=== PATIENT | male | born 1980 | race Caucasian/White ===

== ENCOUNTER 2023-01-02 13:00 | Outpatient (CLI) | payer BC, SELFPAY ==
[2023-01-02 14:52] LABS: Hemoglobin A1C* 4.92 % (0-5.6)
== END 2023-01-02 13:01 | disposition home or self-care (01) ==
PROVIDERS: PCP Family Medicine; Visit Provider Nurse Practitioner Family
DX: L89.893 Pressure ulcer of other site, stage 3 (principal); Q82.0 Hereditary lymphedema; E66.01 Morbid (severe) obesity due to excess calories; Z68.45 Body mass index [BMI] 70 or greater, adult; Z13.1 Encounter for screening for diabetes mellitus
CPT/HCPCS: 36415; 83036; 97597; 97598; 99203

== ENCOUNTER 2023-01-09 07:59 | Outpatient (CLI) | payer BC, SELFPAY | END 2023-01-09 08:00 | disposition home or self-care (01) | LOC: WOUND 07:59 | PROVIDERS: PCP Family Medicine; Visit Provider Nurse Practitioner Family | DX: L89.893 Pressure ulcer of other site, stage 3 (principal); Q82.0 Hereditary lymphedema; E66.01 Morbid (severe) obesity due to excess calories; Z68.45 Body mass index [BMI] 70 or greater, adult | CPT/HCPCS: 11042; 11045 ==

== ENCOUNTER 2023-01-16 11:24 | Outpatient (CLI) | payer BC, SELFPAY | END 2023-01-16 11:25 | disposition home or self-care (01) | LOC: WOUND 11:24 | PROVIDERS: PCP Family Medicine; Visit Provider Nurse Practitioner Family | DX: L89.893 Pressure ulcer of other site, stage 3 (principal); Q82.0 Hereditary lymphedema | CPT/HCPCS: 97597; 97598 ==

== ENCOUNTER 2023-01-23 13:57 | Outpatient (CLI) | payer BC, SELFPAY | END 2023-01-23 13:58 | disposition home or self-care (01) | LOC: WOUND 13:57 | PROVIDERS: PCP Family Medicine; Visit Provider Nurse Practitioner Family | DX: L89.893 Pressure ulcer of other site, stage 3 (principal); Q82.0 Hereditary lymphedema; E66.01 Morbid (severe) obesity due to excess calories; Z68.45 Body mass index [BMI] 70 or greater, adult | CPT/HCPCS: 97597; 97598 ==

== ENCOUNTER 2023-01-30 10:39 | Outpatient (CLI) | payer BC, SELFPAY | END 2023-01-30 10:40 | disposition home or self-care (01) | LOC: WOUND 10:39 | PROVIDERS: PCP Family Medicine; Visit Provider Nurse Practitioner Family | DX: L89.893 Pressure ulcer of other site, stage 3 (principal); Q82.0 Hereditary lymphedema | CPT/HCPCS: 97597; 97598 ==

== ENCOUNTER 2023-02-06 13:05 | Outpatient (CLI) | payer BC, SELFPAY | END 2023-02-06 13:06 | disposition home or self-care (01) | LOC: WOUND 13:05 | PROVIDERS: PCP Family Medicine; Visit Provider Nurse Practitioner Family | DX: L89.893 Pressure ulcer of other site, stage 3 (principal); Q82.0 Hereditary lymphedema; E66.01 Morbid (severe) obesity due to excess calories; Z68.45 Body mass index [BMI] 70 or greater, adult | CPT/HCPCS: 97597 ==

== ENCOUNTER 2023-02-13 13:11 | Outpatient (CLI) | payer BC, SELFPAY | END 2023-02-13 13:12 | disposition home or self-care (01) | LOC: WOUND 13:11 | PROVIDERS: PCP Family Medicine; Visit Provider Family Medicine | DX: L89.893 Pressure ulcer of other site, stage 3; Q82.0 Hereditary lymphedema; E66.01 Morbid (severe) obesity due to excess calories; Z68.45 Body mass index [BMI] 70 or greater, adult; R21 Rash and other nonspecific skin eruption | CPT/HCPCS: 97597 ==

== ENCOUNTER 2023-02-20 13:07 | Outpatient (CLI) | payer BC, SELFPAY | END 2023-02-20 13:08 | disposition home or self-care (01) | LOC: WOUND 13:07 | PROVIDERS: PCP Family Medicine; Visit Provider Nurse Practitioner Family | DX: L89.893 Pressure ulcer of other site, stage 3 (principal); Q82.0 Hereditary lymphedema; E66.01 Morbid (severe) obesity due to excess calories; Z68.45 Body mass index [BMI] 70 or greater, adult | CPT/HCPCS: 11042 ==

== ENCOUNTER 2023-03-13 13:14 | Outpatient (CLI) | payer BC, SELFPAY | END 2023-03-13 13:15 | disposition home or self-care (01) | LOC: WOUND 13:14 | PROVIDERS: PCP Family Medicine; Visit Provider Family Medicine | DX: L89.893 Pressure ulcer of other site, stage 3 (principal); L89.892 Pressure ulcer of other site, stage 2; Q82.0 Hereditary lymphedema | CPT/HCPCS: 11042 ==

== ENCOUNTER 2023-03-20 13:10 | Outpatient (CLI) | payer BC, SELFPAY | END 2023-03-20 13:11 | disposition home or self-care (01) | LOC: WOUND 13:10 | PROVIDERS: PCP Family Medicine; Visit Provider Nurse Practitioner Family | DX: L89.893 Pressure ulcer of other site, stage 3 (principal); Q82.0 Hereditary lymphedema; E66.01 Morbid (severe) obesity due to excess calories; Z68.45 Body mass index [BMI] 70 or greater, adult | CPT/HCPCS: 99213 ==

== ENCOUNTER 2023-03-27 13:26 | Outpatient (CLI) | payer BC, SELFPAY | END 2023-03-27 13:27 | disposition home or self-care (01) | PROVIDERS: PCP Family Medicine; Visit Provider Nurse Practitioner Family | DX: L89.893 Pressure ulcer of other site, stage 3 (principal); Q82.0 Hereditary lymphedema; E66.01 Morbid (severe) obesity due to excess calories; Z68.45 Body mass index [BMI] 70 or greater, adult | CPT/HCPCS: 97597 ==

== ENCOUNTER 2023-04-10 13:02 | Outpatient (CLI) | payer BC, SELFPAY | END 2023-04-10 13:03 | disposition home or self-care (01) | PROVIDERS: PCP Family Medicine; Visit Provider Nurse Practitioner Family | DX: L89.893 Pressure ulcer of other site, stage 3 (principal); Q82.0 Hereditary lymphedema; E66.01 Morbid (severe) obesity due to excess calories; Z68.45 Body mass index [BMI] 70 or greater, adult | CPT/HCPCS: 97597 ==

== ENCOUNTER 2023-04-17 13:19 | Outpatient (CLI) | payer BC, SELFPAY | END 2023-04-17 13:20 | disposition home or self-care (01) | LOC: WOUND 13:19 | PROVIDERS: PCP Family Medicine; Visit Provider Nurse Practitioner Family | DX: L89.893 Pressure ulcer of other site, stage 3 (principal); Q82.0 Hereditary lymphedema | CPT/HCPCS: 11042 ==

== ENCOUNTER 2023-05-01 13:22 | Outpatient (CLI) | payer BC, SELFPAY | END 2023-05-01 13:23 | disposition home or self-care (01) | LOC: WOUND 13:22 | PROVIDERS: PCP Family Medicine; Visit Provider Nurse Practitioner Family | DX: L89.893 Pressure ulcer of other site, stage 3 (principal); Q82.0 Hereditary lymphedema; E66.01 Morbid (severe) obesity due to excess calories; Z68.45 Body mass index [BMI] 70 or greater, adult | CPT/HCPCS: G0463 ==

== ENCOUNTER 2023-05-08 13:16 | Outpatient (CLI) | payer BC, SELFPAY | END 2023-05-08 13:17 | disposition home or self-care (01) | LOC: WOUND 13:16 | PROVIDERS: PCP Family Medicine; Visit Provider Nurse Practitioner Family | DX: L89.893 Pressure ulcer of other site, stage 3 (principal); Q82.0 Hereditary lymphedema | CPT/HCPCS: 97597 ==

== ENCOUNTER 2023-05-15 13:25 | Outpatient (CLI) | payer BC, SELFPAY | END 2023-05-15 13:26 | disposition home or self-care (01) | LOC: WOUND 13:25 | PROVIDERS: PCP Family Medicine; Visit Provider Nurse Practitioner Family | DX: L89.893 Pressure ulcer of other site, stage 3 (principal); Q82.0 Hereditary lymphedema | CPT/HCPCS: G0463 ==

== ENCOUNTER 2023-06-19 13:17 | Outpatient (CLI) | payer BC, SELFPAY | END 2023-06-19 13:18 | disposition home or self-care (01) | LOC: WOUND 13:17 | PROVIDERS: PCP Family Medicine; Visit Provider Nurse Practitioner Family | DX: Z51.89 Encounter for other specified aftercare (principal); Q82.0 Hereditary lymphedema; E66.01 Morbid (severe) obesity due to excess calories; Z68.44 Body mass index [BMI] 60.0-69.9, adult | CPT/HCPCS: G0463 ==

== ENCOUNTER 2023-08-04 13:45 | Outpatient (RCR) | payer BC, SELFPAY ==
--- NOTE | 2023-02-06 17:34 | OT.OPLE ---
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 Pt states he quit drinking and smoking about a year ago. Pt states he does not work outside the home, pt states he 's disabled due to severe back pain. Pt denies any liver or kidney issues, states he has no cardiac issues either. Discussed activity level, pt states he's a night owl, generally watches TV all day, once in a while if the weather is nice he gets out and moves a little in the yard. Pt lives with his mom who does most of the laundry and cooking, cleaning. Pt denies having any outside assistance. Pt states occasionally they will have help come in if his mom ends up in the hospital, when she comes home, they send out help. Pt states his mom has lymphedema in her legs too. Pt's brother does come over to take care of the yardwork. Pt states he does not drive because he can't get behind the steering wheel with his stomach. Medical History Medical History Obesity,Cellulitis/Infection, Slow Healing Wound Medical History Comments [facility] a slow healing wound on the right side of his pannus, states the wound has been there for at least 2 years. Central stenosis of spinal canal, HTN, pt is recovering alcoholic, quit in 2021, used to drink 1/2 - 1 ltr of whiskey per day, also quit smoking in 2021. Per notes from wound clinic, pt does not have any cardiac, kidney or lung issues, no contraindications regarding lymphedema treatment. No active invections Surgical History Surgical History R[facility] 06/2016, [facility] 07/2016 , exploration of left intersphincteric space 2012, I7D left anterior intersphincteric absecess and left anterior fistulotomy 02/2012, LLE TASNEEM, orchiopexy on the right testicle, Medications Medications Per MD note dated 12/26/22: Nystatin Albuterol Sulfate HFA Toplarmate Doxycycline Vitamin D3 Family History Family History of Lymphedema Yes Family History of Lymphedema Comments Mother has lymphedema in both of her legs. Living Situation Current Living Situation Comments Pt lives with his mother who is apparently not in good health. [place] Pt states he tends to sleep on the couch , sometimes lying down and sometimes sitting up. Mom sleeps in the recliner, only has one working recliner in the home. Patient Difficulties Difficulties With Any Of The Following Walking,Dressing,Reaching Feet & Toes,Bathing/Showering, Preparing Meals,Sleeping In Bed Patient Difficulties Comments Pt states he is independent with bathing, dressing, and hygiene but it is a struggle. Pt state his meals are generally fast food, him mom does some cooking but it's mostly just freezer food, sometime hotdish. Exercise History Does Patient Exercise Regularly No Pain Pain Yes Pain Comments Pain in his back, -07/14. Loss of Function/Strength/Mobility Loss Of Function/Strength/Mobility Yes Loss Of Function/Strength/Mobility Pt has great difficulty with Comments mobility and transfers due to severe, morbid obesity and large pannus Previous Treatment Previous Treatment/Current Home Program NONE Compression History Does Patient Currently Wear Compression No During Daytime Does Patient Currently Wear Compression No At Night Current Swelling (Location/Pitting/Texture) Pitting Scale: 0 = No pitting 1+ Tissue returns to normal almost immediately 2+ Tissue returns after 15-30 seconds 3+ Tissue returns after 1-1/2 minutes 4+ Tissue returns after 2-3 minutes N/A Tissue no longer pits due to induration Tissue texture: Soft or indurated Clinical Presentation Area 02/06/23 Abdoman/pannus, pt denies any genital lymphedema and does not feel his legs are swollen, however, it is very likely that pt does have some swelling in these areas due to the severity of swelling in his torso, due to time constraints this was not addressed today. Clinical Presentation Pitting No pitting Clinical Presentation Texture 02/06/23 Note severe fibrosis in the inferior up to mid pannus with multiple areas of thick papillomatosis and hyperkeratosis. Triggering Event & Start Date of 02/06/23 Gradual onset due to Swelling/Lymphedema severe, morbid obesity combined with sedentary lifestyle and alcoholism / smoking, poor diet. Type of Swelling Secondary Staging Staging Stage 3 Skin Changes Skin Changes Fibromas,Hyperkeratosis, Papillomas,Pressure Ulcerations,Fibrosis,Limited Skin Mobility Trunk Chest/Nipple Line 132 Waist 167 Hips 169 Total 468 Assessment Assessment Pt presents with severe, stage 3 lymphdema in his trunk which has left him with a very large pannus which significantly impairs mobility , transfers, hygiene, fit of clothing, and ability to drive , assist with house and yardwork, etc. Pt has severe skin/tissue changes which has led to a wound that has been present for 2+ years per patient. Pt is at high risk for cellulitis and further lymphedema related complications if this is not addressed. Spoke with pt regarding the amt of dedication and commitment that he will need to make in order to improve his condition. Pt verbalized understanding and appears to be very motivated to be an active participant in his care. Pt has been making some better choices toward improving his health this last 1-2 years and seems to be a good candidate for CDT which will include exercise, compression, MLD and skin care . Pt will benefit from skilled OT intervention to address the above in order to reduce swelling, establish LT independent management program and decrease risk for further lymphedema related complications. LE swelling was not addressed today due to time constraints, will need to address at a later date, although, pt does not feel he has any LE swelling and does not feel it is necessary to consider genital lymphedema. Impairments Impairments Loss of Mobility,Difficulties With ADLs,Limb Heaviness,Poor Clothing Fit Impairments Comments Due to the fact that the form does not have a section to measure pannus, the above section that is labeled as chest/nipple line is actually the pannus which measures 132cm perimeter of pannus at belly button level Problem List Problem List Limited Knowledge of Lymphedema Treatment/Condition /Precautions,Limited Knowledge of Skin Care & Infection Precautions,Significant Risk For Infection For Lymphedema Related Complications,Does Not Have a HEP,Does Not Know How To Bandage For Limb Reduction, Does Not Have Appropriate Compression Garments For LT Management,Presents With Increased Fall Risk Secondary To Lymphedema,Presents With Impaired Mobility/ROM,Lack Of Caregiver Support,Financial Insecurity Problem List Comments Rehab potential is guarded at this time due to hx of non- compliance, transportation complications, and duration / severity of his condition. Pt also states that he does not have any money to buy garments or anything else. We may need to contact pending sale to [employer] case loader operator to see if he can get some assistance. (pt states he has a pending sale to [employer] case loader operator but never sees her as it's too far to drive Patient Goals Patient Goals 1. Pt will be independent and compliant with home program for lymphedema management including HEP, elevation, self mobilization / modified MLD, skin care, and deep breathing exs in order to achieve and maintain best outcomes. 4 weeks 2. Pt will demonstrate a reduction of at least 50cm from total measurement in order to improve mobility and transfers, improve fit of clothing and hygiene, reduce risk for exacerbation of lymphedema, infection and further lymphedema related complications. 8 weeks 3. Pt will obtain appropriate compression for LT management of her lymphedema. 10 weeks. Treatment Plan Treatment Plan Evaluation,Edema Control, Manual Therapy,Wound Care/Scar Management,Therapeutic Exercise,Therapeutic Activities,Self-Care/Home Management,Caregiver Training, Education Expected Frequency 2-3x Week Expected Duration 12 weeks Certification Certification I Certify That: Therapy Services Provided, Therapy Plan Established, Therapy Plan Reviewed Recertification Information Recertification Information Initial Certification Date 02/06/23 Recertification Due Date 05/07/23 Reasons to Continue Skilled Therapy Initiated OT today to address severe truncal and LE lymphedema due to severe, morbid obesity Rehabilitation Potential Fair Continued Plan of Care and Interventions Please see above POC Provider Signature Shows Agreement With POC & Medical Necessity Physician Comment/Change Comment or Changes Physician NPI Number #
== END 2023-08-04 14:53 | disposition home or self-care (01) ==
PROVIDERS: PCP Family Medicine; Visit Provider Nurse Practitioner Family
DX: I89.0 Lymphedema, not elsewhere classified (principal); Z51.89 Encounter for other specified aftercare
CPT/HCPCS: 97110; 97140; 97167; 97530; 97535; X5282

== ENCOUNTER 2024-03-11 12:42 | Outpatient (CLI) | payer BC, SELFPAY ==
--- OUTSIDE RECORDS SUMMARY | 2024-03-11 12:44 | XMS_ITS | Clinical Summary ---
Author Organization [facility] Address [place], [place] [address] Care Team Providers Care Property Management Coordinator Name Role Phone Christoph rUibe MD Primary Care Provider [phone] Allergies No known active allergies Medications Medication Sig Dispensed Refills Start Date End Date Status atenolol (TENORMIN) 50 mg tablet Take 50 mg by mouth once daily. 10/30/2016 Active chlorthalidone (HYGROTON) 25 mg tablet Take 25 mg by mouth once daily. 1 03/16/2018 Active albuterol HFA 90 mcg/actuation inhaler Inhale 2 Puffs by mouth every 4 hours if needed. Active nystatin (MYCOSTATIN) cream Apply 100,000 Units topically to affected area(s) each time if needed. Active DILT-XR 180 mg Extended-Release capsuleIndications:P aroxysmal atrial fibrillation (HC) Take 1 capsule by mouth once daily. 30 capsule 11 03/25/2018 Active Active Problems Problem Noted Date Diagnosed Date Atrial fibrillation with rapid ventricular respo nse 03/18/2018 Overview (03/18/2018): -12/23/2017 ECG sinus rhythm -03/17/2018 ECG Atrial fibrillation with rapid ventricular response HR 128 with premature ventricular or aberrantly conducted complexes Nonspecific ST and T wave abnormality [facility] started on diltiazem CD 180 mg daily with apixaban 5 mg BID for 10 days. Essential hypertension 03/18/2018 Social History Tobacco Use Types Packs/Day Years Used Date Smoking Tobacco: Some Days Cigarettes Last attempted to quit: 2011 Smokeless Tobacco: Never Comments:1-2 cigarettes per month Alcohol Use Standard Drinks/Week Comments Yes 0 (1 standard drink = 0.6 oz pure alcohol) 1/2 of 1.75 bottle of robin a day Sex and Gender Information Value Date Recorded Sex Assigned at Not on file Gender Identity Not on file Sexual Orientation Not on file Obstetrics History Last Filed Vital Signs Vital Sign Reading Time Taken Comments Blood Pressure 135/76 03/25/2018 2:07 PM INSURANCE APPRAISER Pulse 82 03/25/2018 2:07 PM INSURANCE APPRAISER Temperature 36.4 C (97.5 F) 12/23/2017 9:50 PM CDT Respiratory Rate 18 12/23/2017 9:50 PM CDT Oxygen Saturation 94% 03/25/2018 2:07 PM INSURANCE APPRAISER Inhaled Oxygen Concentration - - Weight 193.7 kg (427 lb) 03/25/2018 2:07 PM INSURANCE APPRAISER Height 167.6 cm (5' 6) 12/23/2017 4:09 PM CDT Body Mass Index 68.92 12/23/2017 4:09 PM CDT Plan of Treatment Health Maintenance Due Date Last Done Comments Tdap 1993 Depression screening for age 12+ 1994 HIV for age 15-65 1997 BMI (ht and wt on same day) for age 18+ 2000 Hepatitis C screening for ag e 18-79 2000 Tetanus booster 2002 Lipids for age 35-44 2017 COVID-19 vaccine series (2023- season) 2023 Influenza for age 9-49 12/06/2023 Pneumococcal series for age 6-64 Aged Out No longer eligible based on patient's age to complete this topic Care Teams Property Management Coordinator Relationship Specialty Start Date End Date Christoph Uribe MD [address] [place] [address] PCP - General Family Practice 05/27/17
--- OUTSIDE RECORDS SUMMARY | 2024-03-11 12:44 | XMS_ITS | Clinical Summary ---
Author Organization [facility] Address [address], [place] [address] Care Team Providers Care Captain Fire Prevention Bureau Name Role Phone Pcp, Pt Declines Primary Care Provider [phone] Source Comments You are receiving this document as you are listed as the primary care provider,follow-up provider, or the patient has been referred to you for consultation.This is in compliance with the Medicare and[facility] EHR Incentive Program,which states Providers who transition their patient to another setting of careor provider of care or refers their patient to another provider of care shouldprovide summary care record for each transition of care or referral. [facility] Allergies No known active allergies Medications Medication Sig Dispensed Refills Start Date End Date Status ALBUterol sulfate HFA 108 (90 BASE) MCG/ACT inhaler Inhale 2 Puffs. Active atenolol (TENORMIN) 50 MG tablet Take 50 mg by mouth daily. 5 10/30/2016 Active aspirin 325 MG tablet Take 325 mg by mouth daily. Active diltiaZEM CR (DILACOR XR) 180 MG 24 hour release capsule Take 180 mg by mouth daily. Active chlorthalidone (HYGROTON) 25 MG tablet Take 25 mg by mouth daily. Active potassium chloride 10 MEQ controlled release capsule Take 20 mEq by mouth two times a day. Active budesonide-formoterol (SYMBICORT) 160-4.5 MCG/ACT inhaler Inhale 2 Puffs two times a day. Rinse mouth/gargle after use. Active Active Problems Problem Noted Date Diagnosed Date Obesity 09/10/2002 Social History Tobacco Use Types Packs/Day Years Used Date Smoking Tobacco: Former Cigarettes Q uit: 04/03/2012 Smokeless Tobacco: Never Alcohol Use Standard Drinks/Week Comments Yes 0 (1 standard drink = 0.6 oz pur e alcohol) 4-5 drinks/2-3 times a week Sex and Gender Information Value Date Recorded Sex Assigned at Not on file Gender Identity Not on file Sexual Orientation Not on file Last Filed Vital Signs Vital Sign Reading Time Taken Comments Blood Pressure 161/96 09/02/2019 2:34 PM CDT Pulse 100 09/02/2019 2:34 PM CDT Temperature 37.4 C (99.3 F) 09/02/2019 1:17 PM CDT Respiratory Rate 24 09/02/2019 2:34 PM CDT Oxygen Saturation 95% 09/02/2019 2:34 PM CDT Inhaled Oxygen Concentration - - Weight 211.8 kg (467 lb) 09/02/2019 1:32 PM CDT Height 167.6 cm (5' 6) 09/02/2019 1:17 PM CDT Body Mass Index 75.38 09/02/2019 1:17 PM CDT Plan of Treatment Health Maintenance Due Date Last Done Comments Hep C Screening (Preventive Services) 1982 HIV Screening (Preventive Services) 1998 Adult Preventive Visit 2000 HepB (1) 2001 Cholesterol 2017 DTaP/Tdap/Td (3 - Tdap) 12/24/2022 12/25/19 13, 11/26/2012 COVID-19 Vaccine (2 - 2023-2 5 season) 2023 09/21/2020 Influenza (#1) 2023 Zoster/Shingles (1 of 2) 2032 HPV Vaccine Aged Out No longer eligi ble based on patient's age to complete this topic HepA Aged Out No longer eligi ble based on patient's age to complete this topic Hib Aged Out No longer eligi ble based on patient's age to complete this topic IPV (Polio) Aged Out No longer eligi ble based on patient's age to complete this topic RSV Aged Out No longer eligi ble based on patient's age to complete this topic MCV4 Aged Out No longer eligi ble based on patient's age to complete this topic Pneumococcal Aged Out No longer eligi ble based on patient's age to complete this topic Care Teams Captain Fire Prevention Bureau Relationship Specialty Start Date End Date Pcp, Pt [place], [place] [address] PCP - General 10/24/16
--- OUTSIDE RECORDS SUMMARY | 2024-03-11 12:44 | XMS_ITS | Continuity of Care Document ---
Author Organization [facility] Address [address] [place] [address] Phone Care Team Providers Care Weatherization Director Name Role Phone Unavailable Unavailable Unavailable Medications Medication Instructions Dosage Effective Dates (start - stop) Status Comments hydroxyzine 50 mg tablet take 1 tablet by oral route 4 times every day 50 MG - Active Procedures Procedure Date Inject Joint Large Fluoro Needle - Nonspine Marcaine 30ml Lo Osm Contr Mat (200-249mg) Depomedrol 80mg Offic Cons New/estab Mod-hi 60 13 Advance Directives Directive Yes / No Effective Date File Name No Information Encounters Encounter Description Practice Location Reason(s) For Visit Diagnoses Date Provider Providers Copied on Encounter [facility], [address], [place], [place], [id number], tel:[phone] [facility] No Information No Information Referring Provider: REFERRAL SELF, KEE. Offic Cons New/estab Mod-hi 60 [facility], [address], [place], [place], [id number], [place] tel:[phone] [facility] No Information No Information Referring Provider: REFERRAL SELFKEE. Family History Family Member Type Diagnosis Age At Onset No Information Payers Payer name Insurance type Covered republican ID Authoriza tiranjith(s) Blue Plus BL [id number] Social History Type Description Quantity Date Captured Comments Alcohol Use Details No Caffeine Use Details Unknown Tobacco Use Status No Information Smoking Status Former Smoker Non-Smoking Tobacco Use Details : No Details Available : No Details Available Sex Male Chief Complaint And Reason For Visit No Information Reason For Referral Reason For Referral No Information History Of Present Illness Encounter Date Complaint History Of Prese nt Illness No Information Functional Status Date Functional Assessmen t No Information Instructions Date Instruction Additional Infor mation No Information Assessments Type Assessment Date No Information Patient Care Teams Name Effective Dates (start - stop) Status Members No Information
== END 2024-03-11 12:43 | disposition home or self-care (01) ==
LOC: WOUND 12:42
PROVIDERS: PCP Family Medicine; Visit Provider Nurse Practitioner Family
DX: Q82.0 Hereditary lymphedema (principal); E65 Localized adiposity; R23.8 Other skin changes; E66.9 Obesity, unspecified; Z68.44 Body mass index [BMI] 60.0-69.9, adult
CPT/HCPCS: 11042; G0463

== ENCOUNTER 2024-03-18 13:22 | Outpatient (CLI) | payer BC, SELFPAY | END 2024-03-18 13:23 | disposition home or self-care (01) | LOC: WOUND 13:22 | PROVIDERS: PCP Family Medicine; Visit Provider Nurse Practitioner Family | DX: Q82.0 Hereditary lymphedema (principal); E65 Localized adiposity; R23.8 Other skin changes | CPT/HCPCS: G0463 ==

== ENCOUNTER 2024-03-25 13:23 | Outpatient (CLI) | payer BC, SELFPAY | END 2024-03-25 13:24 | disposition home or self-care (01) | LOC: WOUND 13:24 | PROVIDERS: PCP Family Medicine; Visit Provider Nurse Practitioner Family | DX: Q82.0 Hereditary lymphedema (principal); E65 Localized adiposity; R23.8 Other skin changes | CPT/HCPCS: G0463 ==

== ENCOUNTER 2024-04-01 13:16 | Outpatient (CLI) | payer BC, SELFPAY | END 2024-04-01 13:17 | disposition home or self-care (01) | LOC: WOUND 13:16 | PROVIDERS: PCP Family Medicine; Visit Provider Nurse Practitioner Family | DX: Q82.0 Hereditary lymphedema (principal); E65 Localized adiposity; R23.8 Other skin changes | CPT/HCPCS: G0463 ==

== ENCOUNTER 2024-04-08 13:24 | Outpatient (CLI) | payer BC, SELFPAY | END 2024-04-08 13:25 | disposition home or self-care (01) | LOC: WOUND 13:24 | PROVIDERS: PCP Family Medicine; Visit Provider Nurse Practitioner Family | DX: Q82.0 Hereditary lymphedema (principal); R23.8 Other skin changes | CPT/HCPCS: G0463 ==

== ENCOUNTER 2024-07-07 14:24 | Outpatient (CLI) | payer BC, SELFPAY | END 2024-07-07 14:25 | disposition home or self-care (01) | LOC: WOUND 14:24 | PROVIDERS: PCP Family Medicine; Visit Provider Nurse Practitioner Family | DX: Q82.0 Hereditary lymphedema (principal); E65 Localized adiposity; R23.8 Other skin changes | CPT/HCPCS: G0463 ==

== ENCOUNTER 2024-08-02 12:30 | Outpatient (RCR) | payer BC, SELFPAY ==
[2024-04-18 08:46] VITALS: BMI 66.4
--- NOTE | 2024-04-18 17:50 | OT.OPLE2 ---
OT Outpatient Lymphedema Eval* OT Outpatient Lymphedema Eval* Start: 04/18/24 08:45 Freq: Status: Active Protocol: Document 04/18/24 08:46 AMB (Rec: 04/18/24 15:08 AMB [id number]) E-signed By Zehra Castano, OTR/L, CLT, ASSOCIATE PROFESSOR OF MUSIC OT Outpatient Evaluation Details Type Type Eval Complexity Medium Insurance Information Insurance Information Insurance Information Medicaid Other Insurance BC/BS Medicaid Height and Weight Height Height 167.64 cm Weight Weight 186.74 kg Weight Measurement Method Standing Scale BMI Body Mass Index (kg/m?) 66.4 BMI Classification Extreme Obesity Obesity Class III Home Program Home Program Home Program Initiated Home Program Specifics Pt was provided training / review of seated lymphatic stimulating exercises including deep / diaphragmatic breathing. Following demo, pt was able to complete exs with minimal cues. Pt was provided additional handout for use at home as well as encouragement for consistent, compliance to ensure best outcomes. OT OP Lymphedema Evaluation Current Condition/Medical Diagnosis Referring Provider VASQUEZ Jeffries Medical Diagnoses I89.0 Lymphedema Treatment Diagnosis I89.0 Lymphedema Date Of Onset Chronic Medical Contraindications HTN,Metal Implants Medical History Medical History Obesity,Slow Healing Wound,HTN Medical History Comments Pt is familiar to this clinic. Pt was seen in OT lymphedema clinic by this investment underwriter from 02/06/23-08/04/23. At that time, pt received MLD with extensive work on adipose related fibrosis, HEP including deep breathing, walking program and UE strengthening, he received a custom fabricated compression garment in collaboration with the [employer] rep (garment was donated by the [employer]), he was referred to dietary and also referred to a surgeon for a consult to have a panniculectomy which, unfortunately, the surgeon refused to see the patient until he lost weight. Pt had actually lost ~ 80# prior to attending OT and an additional 30# throughout his OT episode of care. Pt was last seen on 08/04/23 and discharged to independent program for exercise, deep breathing, and walking with the goal of losing additional weight so that he could be referred for surgical consult. PMH also includes arrhythmia and burn. Surgical History Surgical History B[facility] 2016, exploration of left intersphincteric space 2012, lleft anterior intersphincteric abscess and left anterior fistulotomy 02/15, LLE TASNEEM, orchiopexy on the right testicle Medications Medications Nystatin, albuterol, sulfate HFA, Toplarmate, Doxycycline, Vitamin D3 Contraindications Contraindications Comments Pt denies any cardiac, kidney, or lung issues. Family History Family History of Lymphedema Yes Family History of Lymphedema Comments Pt's mother has lymphedema in BLE, she has been hospitalized multiple times secondary to the lymphedema. Current Work Status Current Work Status Unemployed Subjective Subjective Pt states he ended up back at the wound center due to developing some wounds again on his abdomen. Pt said his wounds have been healing. Pt states the wound care clinic has ordered a lymphedema pump, pt states the rep is coming on . 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 Pt feels he is able to stand more, states he's actually been able to walk around the grocery store now due to his weight loss, he used to only shop at the gas station as he didn't have to walk as far. Pt is currently not able to work as walking is very hard for him due to his large pannus. Pt also continues to have moderate to severe back and left hip pain, feels this is exacerbated by his pannus. Pt lives with his mother who is obese and also struggles with LE lymphedema. Pt states he is very frustrated with his mother as she continues to eat very poorly and smokes a lot, states she has no intention of improving her health, she was recently hospitalized due to oozing from her legs. Pt states she has gone through 5# of butter in a month, pt states he has not had any butter in over a month. Pt is working on eating more fruits and vegetables and trying really hard to drink more water. Pt states he is really trying to loose more weight, was down more prior to the holidays. 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 Pt used to like to go fishing or help his brother but cannot now because of his belly Living Situation Current Living Situation Home w/mom Current Living Situation Comments Pt tends to sleep on the couch on his right side with his pannus hanging over the edge. This was addressed during his last episode of care. He was strongly encouraged to sleep in his bed to prevent the pannus from hanging over onto the floor. Pt states he has modified the couch, he put a pail in front of the couch with a pillow on top to support his pannus. States he has tried to sleep in his bed but he does not sleep well. Patient Difficulties Difficulties With Any Of The Following Walking,Dressing,Reaching Feet & Toes,Sleeping In Bed Patient Difficulties Comments Pt has a compression garment, but he really struggles with getting it on, states it never stays on, slides off. Impairments Impairments Loss of Mobility,Difficulties With ADLs,Limb Heaviness,Poor Clothing Fit Impairments Comments Pt is very limited in clothing selection due to the size of his pannus. Problem List Problem List Limited Knowledge of Skin Care & Infection Precautions, Significant Risk For Infection For Lymphedema Related Complications,Presents With Increased Fall Risk Secondary To Lymphedema,Presents With Impaired Mobility/ROM,Lack Of Caregiver Support,Financial Insecurity Problem List Comments Pt is only able to stand >15 minutes, pt struggles with lying in bed, has trouble lifting his legs to transfer supine<>sit, cannot fit behind the steering wheel on his truck, is very limited in his ability to walk >100 ft and has chronic hip and LB pain. Pt lives with his mother who is really not able to help much, pt also speaks of financial issues. Pain Pain Yes Pain Comments Pt states he has pain in his LB and left hip. States its much worse with standing and walking. Pt has increased pain with walking as well due to the fact that his legs have to push his pannus forward with each step. ROM/Strength ROM/Strength Comments BUE AROM is WNL throughout all joints / planes. MMT Of BUE shoulders is 4-/5 throughout, MMT of BUE elbows, forearms and hands is 4/5. Previous Treatment Previous Treatment For Swelling/ MLD,Compression Garment, Lymphedema Exercise,Elevation,Self Massage Previous Treatment/Current Home Program Pt was seen several months ago and discharged to independent program of self MLD, exercise , deep breathing, and compression garment. Pt struggled with the garment as he needed help to juan it and stated that it never stayed on as it would just get loose and fall off, so he has not been wearing it. Pt was also provided with recommendations for elevating his pannus at night as well as sleeping in bed, pt continues to struggle with sleeping in bed as he says his back and hip hurt, his mattress is too hard. Compression History Does Patient Currently Wear Compression No During Daytime Does Patient Currently Wear Compression No At Night Current Swelling (Location/Pitting/Texture) Pitting Scale: 0 = No pitting 1+ Tissue returns to normal almost immediately 2+ Tissue returns after 15-30 seconds 3+ Tissue returns after 1-1/2 minutes 4+ Tissue returns after 2-3 minutes N/A Tissue no longer pits due to induration Tissue texture: Soft or indurated Clinical Presentation Area Gr 5 pannus Triggering Event & Start Date of Severe obesity Swelling/Lymphedema Clinical Presentation Pitting/Texture Pt presents with gr 3-4 pitting edema in the lower pannus along with significant fibrosis and papillomatosis throughout the pannus. Multiple scabbed areas are present as well. No s/s of infection. Skin Changes Comments Pt has multiple scabbed areas on his abdomen. Was seen in wound clinic but has been discharged. Type of Swelling Secondary Staging Staging Stage 3 Circumferential Measurements Trunk Chest/Nipple Line 145 Waist 157 Hips 160.5 Total Girth in cm 462.5 Comments/Additional Measurements Comments/Additional Measurements Circumference of the pannus itself is 104dm, measured at the belly button level. Assessment Assessment Pt is a 43yo referred to OT lymphedema clinic by the wound care clinic to address severe , stage 3, chronic lymphedema of his pannus with slow healing wounds. According to patient, his abdomen has been swollen for several years. Pt feels it started when he reached his highest weight and he was living a very unhealthy lifestyle. Pt states he used to drink a lot and smoked. Pt quite drinking and smoking a year and a half or so ago. Pt states after he did that he lost 80-100#. Pt is actually down an additional 11 /7# since I last saw him in the clinic on 08/04/23. Due to patient's lymphedema in his abdomen, he is at risk for infection, continued slow healing wounds and continued struggles with walking, getting in and out of bed, driving his truck and being more active in general. Pt will benefit from skilled OT intervention to address chronic lymphedema in his pannus in order to improve his QOL and reduce risk for additional slow healing wounds / infection. Patient Goals Patient Goals 1. Pt would like to lose additional fluid in his abdomen so that he can stand longer and so that he could fit behind the wheel of his truck so that he can safely drive. 07/17/24 2. Pt will be able to stand for at least for at least 20 minutes comfortably to improve his ability to work longer in his shop and so that he can get out and do things with his friends. 06/16/24 Short Term Goals (# of Weeks) 8 Short Term Goals 1. Pt will be independent and compliant with HEP including self-mobilization of pannus, strengthening, walking, and deep breathing in order to maximize positive outcomes. 2. Pt will demonstrate a reduction in the circumference of his pannus from a current 104cm to no greater than 80 cm to allow for improved lymphatic flow / drainage, decreased ability to transfer sit<>supine and into and out of a vehicle. 3. Pt will be compliant with his lymphedema pump in order to improve lymphatic flow and reduce risk for further lymphedema related complications. Short Term Goals Comments Pt is only able to stand >15 minutes, pt struggles with lying in bed, has trouble lifting his legs to transfer supine<>sit, cannot fit behind the steering wheel on his truck, is very limited in his ability to walk >100 ft and has chronic hip and LB pain. Pt lives with his mother who is really not able to help much, pt also speaks of financial issues. [employer] Goals (# of Weeks) 12 [employer] Goals 1. Pt will demonstrate the ability to stand while actively participating in exercise or a physical activity for at least 30 minutes without seated rest break to improve general strength and activity tolerance needed to work in his shop. 12 weeks 2. Pt will demonstrate a reduction of the total trunk measurements from a current 467.5cm to no greater than 437 .5cm and pannus from a current 104cm to no greater than 70cm in order to improve lymphatic flow into and out of the pannus to reduce fibrosis and risk for infection. 12 weeks Treatment Plan Treatment Plan Evaluation,Edema Control, Manual Therapy,Wound Care/Scar Management,Therapeutic Exercise,Therapeutic Activities,Self-Care/Home Management,Caregiver Training, Education Expected Frequency 1-2x Week Expected Duration 12 weeks Certification Certification Statement I Certify That: Therapy Services Provided, Therapy Plan Established, Therapy Plan Reviewed Certification Information Clinic ID # [id number] Initial Certification Date 04/18/24 Recertification Due Date 07/17/24 Provider Signature Required Yes Provider Signature Shows Agreement With POC & Medical Necessity Physician NPI Number Write NPI# Here Physician Comment/Change Comment or Changes Physician Signature & Date Requested Please Sign/Date Here
[2024-05-03 14:27] VITALS: BMI 66.6
[2024-05-06 15:38] VITALS: BMI 66.6
[2024-05-10 14:08] VITALS: BMI 66.7
[2024-05-13 14:22] VITALS: BMI 66.7
[2024-05-25 09:35] VITALS: BMI 66.7
[2024-05-27 15:34] VITALS: BMI 66.7
[2024-05-31 14:34] VITALS: BMI 66.8
[2024-06-03 14:34] VITALS: BMI 66.8
[2024-06-16 09:39] VITALS: BMI 66.8
[2024-06-21 12:01] VITALS: BMI 66.8
[2024-06-24 10:22] VITALS: BMI 66.8
[2024-06-28 12:40] VITALS: BMI 66.8
[2024-06-30 12:54] VITALS: BMI 66.8
[2024-07-05 13:26] VITALS: BMI 66.8
[2024-07-08 12:37] VITALS: BMI 66.8
[2024-07-12 15:07] VITALS: BMI 66.8
[2024-07-19 12:33] VITALS: BMI 66.8
--- NOTE | 2024-07-19 19:06 | OT.OPLDN2 ---
OT Outpatient Lymphedema Daily Note OT Outpatient Lymphedema Daily Note* Start: 04/18/24 08:45 Freq: Status: Active Protocol: Document 07/28/24 12:41 AMB (Rec: 07/28/24 18:46 AMB [id number]) E-signed By Zehra Castano, OTR/L, CLT, [employer] MA[employer]ACH[employer]PER FEEDER Type of Note Type of Note Type of Note Daily Note Visit Number 20 Comments SOC 04/18/24 Insurance Information Insurance Information Insurance Information Medicaid Other Insurance [place] Medicaid Insurance Information Comments 412.5# 05/10/24 413.3# 05/25/24 407.5# 05/31/24 414# 06/16/24 399.1# 06/24/24 403# 06/30/24 408.5# 07/08/24 399.6# 07/19/24 401.1 07/28/24 397.6# Height and Weight Height Height 167.64 cm Weight Weight 187.787 kg Weight Measurement Method Standing Scale BMI Body Mass Index (kg/m?) 66.8 BMI Classification Extreme Obesity Obesity Class III Home Program Home Program Home Program Compliant Home Program Specifics 05/03/24 Pt was provided training / review of seated lymphatic stimulating exercises including deep / diaphragmatic breathing. Following demo, pt was able to complete exs with minimal cues. Pt was provided additional handout for use at home as well as encouragement for consistent, compliance to ensure best outcomes. OT OP Lymphedema Daily/Progress Note Current Condition/Medical Diagnosis Referring Provider VASQUEZ Jeffries Treatment Diagnosis I89.0 Lymphedema Date Of Onset Chronic Medical Contraindications HTN,Metal Implants Medical History Medical History Obesity,Slow Healing Wound,HTN Medical History Comments Pt is familiar to this clinic. Pt was seen in OT lymphedema clinic by this contract technical writer from 02/06/23-08/04/23. 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 Pt had actually lost ~ 80# prior to attending OT and an additional 30# throughout his OT episode of care. Pt was last seen on 08/04/23 and discharged to independent program for exercise, deep breathing, and walking with the goal of losing additional weight so that he could be referred for surgical consult. PMH also includes arrhythmia and burn. Surgical History Surgical History BUE CTR 2017, exploration of left intersphincteric space 2012, lleft anterior intersphincteric abscess and left anterior fistulotomy 02/15, LLE TASNEEM, orchiopexy on the right testicle Medications Medications Nystatin, albuterol, sulfate HFA, Toplarmate, Doxycycline, Vitamin D3 Contraindications Contraindications Comments Pt denies any cardiac, kidney, or lung issues. Family History Family History of Lymphedema Yes Family History of Lymphedema Comments Pt's mother has lymphedema in BLE, she has been hospitalized multiple times secondary to the lymphedema. Current Work Status Current Work Status Unemployed Subjective Subjective Discussed pt's progress today to address 10th visit PN. Pt states his stomach has really softened up and he feels it has gotten smaller. Pt also states is now sleeping in his approximately 40% of the time and finds this to be helpful, pt states he isn't able to do it 100% of the time as it bothers his hip and back. Pt also notes significant progress with his ability to walk around his yard and through the grocery store, walking further and not getting SOB. Pt states he continues to work on improving his diet and exercise as he wants to continue to lose weight, hoping to qualify for surgery to have his pannus reduced in the near future. Pt received a lymphedema pump last week, hasn't had a chance to try it out yet due to his finger and his back hurting. Pt states he had a fall last week due to his hip giving out while he was stepping though some leroy, pt landed on his left hand and dislocated his left RF, states he had his neighbor take him to the ER and the doctor reduced the dislocation and wrapped it with Coban, pt states he took it off a few days later and it 's been ok, still stiff and sore, but he is moving and using it ok. Living Situation Current Living Situation Home w/mom Current Living Situation Comments Pt tends to sleep on the couch on his right side with his pannus hanging over the edge. This was addressed during his last episode of care. He was strongly encouraged to sleep in his bed to prevent the pannus from hanging over onto the floor. Pt states he has modified the couch, he put a pail in front of the couch with a pillow on top to support his pannus. States he has tried to sleep in his bed but he does not sleep well. Patient Difficulties Difficulties With Any Of The Following Walking,Dressing,Reaching Feet & Toes,Sleeping In Bed Patient Difficulties Comments Pt has a compression garment, but he really struggles with getting it on, states it never stays on, slides off. Impairments Impairments Loss of Mobility,Difficulties With ADLs,Limb Heaviness,Poor Clothing Fit Impairments Comments Pt is very limited in clothing selection due to the size of his pannus. Problem List Problem List Limited Knowledge of Skin Care & Infection Precautions, Significant Risk For Infection For Lymphedema Related Complications,Presents With Increased Fall Risk Secondary To Lymphedema,Presents With Impaired Mobility/ROM,Lack Of Caregiver Support,Financial Insecurity Problem List Comments Pt is only able to stand >15 minutes, pt struggles with lying in bed, has trouble lifting his legs to transfer supine<>sit, cannot fit behind the steering wheel on his truck, is very limited in his ability to walk >100 ft and has chronic hip and LB pain. Pt lives with his mother who is really not able to help much, pt also speaks of financial issues. Pain Pain Yes Pain Comments Pt states he has pain in his LB and left hip. States its much worse with standing and walking. Pt has increased pain with walking as well due to the fact that his legs have to push his pannus forward with each step. ROM/Strength ROM/Strength Comments BUE AROM is WNL throughout all joints / planes. MMT Of BUE shoulders is 4-/5 throughout, MMT of BUE elbows, forearms and hands is 4/5. Previous Treatment Previous Treatment For Swelling/ MLD,Compression Garment, Lymphedema Exercise,Elevation,Self Massage Previous Treatment/Current Home Program Pt was seen several months ago and discharged to independent program of self MLD, exercise , deep breathing, and compression garment. Pt struggled with the garment as he needed help to juan it and stated that it never stayed on as it would just get loose and fall off, so he has not been wearing it. Pt was also provided with recommendations for elevating his pannus at night as well as sleeping in bed, pt continues to struggle with sleeping in bed as he says his back and hip hurt, his mattress is too hard. Compression History Does Patient Currently Wear Compression No During Daytime Compression During Daytime Comments Pt has had a custom compression garment fashioned for him utilizing multiple pieces of [employer] kits. However, due to the weight of his pannus and body habitus , the garment does not stay in place. Multiple efforts have been made to modify it without success. We have added suspenders, attempted to utilize different types of tape including Coban, added multiple different types of Velcro straps and additional abdominal binders, however, the garment just will not stay in place. The weight as well as the pendulous habit of the garment does not allow for it to stay in place. Pt compensated for his inability to utilize compression garments buy making attempts to lift up and hug or compress his pannus when he can throughout the day. Does Patient Currently Wear Compression No At Night Current Swelling (Location/Pitting/Texture) Pitting Scale: 0 = No pitting 1+ Tissue returns to normal almost immediately 2+ Tissue returns after 15-30 seconds 3+ Tissue returns after 1-1/2 minutes 4+ Tissue returns after 2-3 minutes N/A Tissue no longer pits due to induration Tissue texture: Soft or indurated Clinical Presentation Area Gr 5 pannus Triggering Event & Start Date of Severe obesity Swelling/Lymphedema Clinical Presentation Pitting/Texture IE: t presents with gr 3-4 pitting edema in the lower pannus along with significant fibrosis and papillomatosis throughout the pannus. Multiple scabbed areas are present as well. No s/s of infection. Skin Changes Comments IE: Pt has multiple scabbed areas on his abdomen. Was seen in wound clinic but has been discharged. Type of Swelling Secondary Staging Staging Stage 3 Circumferential Measurements Trunk Chest/Nipple Line 140 Waist 157 Hips 158.5 Total Girth in cm 455.5 Comments/Additional Measurements Comments/Additional Measurements Circumference of the pannus itself remains at 100.5 cm, measured at the belly button level. Treatment Manual Therapy Minutes (minutes) 13 Manual Therapy Comments Provided deep MT to the pannus with focus on softening fibrotic tissue through tissue mobilization including kneading, hand cupping, and rolling techniques. Pannus is held up with pillow in pt's lap during MT as well as during UE strengthening exs. Utilized Graston tool to provide IASTM with focus on reducing fibrosis in the lower aspect of pannus. Also provided supine manual compression with hold x 10 minutes to encourage drainage of fluid from pannus. Therapeutic Exercise Minutes (minutes) 28 Therapeutic Exercise Comments Completed trunk and UE strengthening to promote improved muscle tone and pumping action of muscles to increase over-all lymphatic flow, LE strengthening and Nu- step to promote LE muscle strengthening as well as over- all lymphatic flow. Exs as follows: Seated biceps curls with 5# 15 reps x 1 Seated chest press with 5# 15 reps x 1 Seated shoulder press with 5# 15 reps x 1 Seated pro/sup with 5# 15 reps x 1 Utilized level 5 TB (black for the following): Trunk flex/ext 20 reps Trunk rot right and left 20x each Seated hip abd 15 reps each side Seated HS pull 20 reps each side. Pt also ambulated 512 feet with 1 standing rest breaks, unable to go further as his hip has been bothering him. Total Occupational Therapy Minutes 41 Assessment Assessment Pt required additional rest breaks today due to hip pain. Since the SOC, pt has lost 14 .9#, and a total of 7cm from total circumference of his torso and 3.5cm from the total circumference of his pannus measured at his navel. Patient Goals Patient Goals 1. Pt would like to lose additional fluid in his abdomen so that he can stand longer and so that he could fit behind the wheel of his truck so that he can safely drive. 07/28/24 This goal is partially met, pt has lost some weight and is noticing a significant softening of his pannus indicating a reduction in fibrosis, this goal will be extended to 2. Pt will be able to stand for at least for at least 20 minutes comfortably to improve his ability to work longer in his shop and so that he can get out and do things with his friends. 06/16/24 Short Term Goals (# of Weeks) 8 Short Term Goals 1. Pt will be independent and compliant with HEP including self-mobilization of pannus, strengthening, walking, and deep breathing in order to maximize positive outcomes. 2. Pt will demonstrate a reduction in the circumference of his pannus from a current 104cm to no greater than 80 cm to allow for improved lymphatic flow / drainage, decreased ability to transfer sit<>supine and into and out of a vehicle. 3. Pt will be compliant with his lymphedema pump in order to improve lymphatic flow and reduce risk for further lymphedema related complications. 05/03/24 New Goal Added: Pt will track a minimum of 2000 steps every day for at least 7 consecutive days by 06/10/24 in order to improve general LE strength and activity tolerance and to assist in mobilizing fluid from his lower body. Short Term Goals Comments Pt is only able to stand >15 minutes, pt struggles with lying in bed, has trouble lifting his legs to transfer supine<>sit, cannot fit behind the steering wheel on his truck, is very limited in his ability to walk >100 ft and has chronic hip and LB pain. Pt lives with his mother who is really not able to help much, pt also speaks of financial issues. Usability Engineer Goals (# of Weeks) 12 Nursing Home Goals 1. Pt will demonstrate the ability to stand while actively participating in exercise or a physical activity for at least 30 minutes without seated rest break to improve general strength and activity tolerance needed to work in his shop. 12 weeks 2. Pt will demonstrate a reduction of the total trunk measurements from a current 467.5cm to no greater than 437 .5cm and pannus from a current 104cm to no greater than 70cm in order to improve lymphatic flow into and out of the pannus to reduce fibrosis and risk for infection. 12 weeks Treatment Plan Treatment Plan Evaluation,Edema Control, Manual Therapy,Wound Care/Scar Management,Therapeutic Exercise,Therapeutic Activities,Self-Care/Home Management,Caregiver Training, Education Expected Frequency 1-2x Week Expected Duration 12 weeks Occupational Therapy Billing Units Treatment Minutes Timed Treatment Minutes 41 Total Treatment Minutes 41 Billing Units Manual Therapy 1 Therapeutic Exercise 2 Certification Statement Certification Statement I Certify That: Therapy Services Provided, Therapy Plan Established, Therapy Plan Reviewed
[2024-07-22 12:35] VITALS: BMI 66.8
[2024-07-28 12:41] VITALS: BMI 66.8
[2024-08-02 12:49] VITALS: BMI 66.8
== END 2024-11-30 23:59 | disposition home or self-care (01) ==
PROVIDERS: PCP Family Medicine; Visit Provider Nurse Practitioner Family
DX: I89.0 Lymphedema, not elsewhere classified (principal); Z51.89 Encounter for other specified aftercare
CPT/HCPCS: 97032; 97110; 97140; 97166; X5282

== ENCOUNTER 2025-02-24 12:54 | Outpatient (CLI) | payer BC, SELFPAY | END 2025-02-24 12:55 | disposition home or self-care (01) | LOC: WOUND 12:54 | PROVIDERS: PCP Family Medicine; Referring Provider Family Medicine; Visit Provider Nurse Practitioner Family | DX: Q82.0 Hereditary lymphedema (principal); E65 Localized adiposity; R23.8 Other skin changes | CPT/HCPCS: G0463 ==